=== PATIENT | male | born 1960 | race Caucasian/White ===

== ENCOUNTER 2017-05-14 09:05 | Emergency (ER) | payer OTHER ==
[2017-05-14 09:42] VITALS: BP 131/75; PULSE 84; RESP 16; TEMP 98.1; O2SAT 97
== END 2017-05-14 10:24 | disposition home or self-care (01) | DRG 563 ==
LOC: ED 09:05
DX: S63.501A Unspecified sprain of right wrist, initial encounter (principal); X50.1XXA Overexertion from prolonged static or awkward postures, initial encounter
CPT/HCPCS: 73110; 99282